=== PATIENT | female | born 1990 | race Two or more races ===

== ENCOUNTER 2019-09-18 13:06 | Emergency (ER) | payer MEDICAID ==
[~2019-09-18] VITALS: Ht 157.5 cm; Wt 57.2 kg
--- NOTE | 2019-09-18 13:15 | NUR ---
patient came in to the er c/o body aches, sore throat, . on room air, breathing evenly and unlabored. connected to the monitor and pulse ox. kept comfortable, will continue to monitor accordingly.
--- NOTE | 2019-09-18 13:24 | NUR ---
urine collected and sent to lab
[2019-09-18 13:30] LABS: APPEARANCE,URINE Clear (CLEAR); BILIRUBIN,URINE Negative (NEGATIVE); BLOOD, URINE Negative Ery/uL (NEGATIVE); COLOR,URINE Yellow (YELLOW); KETONES,URINE Negative (NEGATIVE); LEUKOCYTE ESTERASE ,URINE Negative (NEGATIVE); NITRITE, URINE Negative (NEGATIVE); PROTEIN,URINE Negative (NEGATIVE); UGLUCOSE Negative (NEGATIVE); UROBILINOGEN,URINE 0.2 EU/dL (0.2)
--- NOTE | 2019-09-18 13:43 | NUR ---
covid 19 swab done and sent to lab
[2019-09-18 14:12] VITALS: BP 118/69
--- NOTE | 2019-09-18 14:13 | NUR ---
Patient discharged to home in stable condition. Written and verbal after care instructions given. Patient verbalizes understanding of instruction.
--- NOTE | 2019-09-20 03:49 | NUR ---
LAB CALLED REGARDING COVID TEST RESULTS. PT POSITIVE.
== END 2019-09-18 14:13 | disposition home or self-care (01) ==
LOC: ER 13:10
DX: O98.513 Other viral diseases complicating pregnancy, third trimester (principal); U07.1 COVID-19; R50.9 Fever, unspecified; M79.10 Myalgia, unspecified site
CPT/HCPCS: 76815; 81001; 99284; C9803; U0003; 81000-TC